=== PATIENT | male | born 1955 | race Two or more races ===

== ENCOUNTER → 2020-02-20 | Outpatient (CLI) | payer OTHER ==
--- NOTE | 2020-02-20 15:49 | Diagnostic Imaging Report ---
Cervical spine, complete, 4 views INDICATION: ^[id number] ^[id number] ^Spondylolysis, cervical region Comparison: None available. Discussion: There is straightening and reversal the normal cervical lordosis. Negative significant compression deformity or displaced fracture deformity. Negative for abnormal prevertebral soft tissue thickening. Visualized portions of the odontoid are unremarkable. C1-C2 articulation is symmetric. Disc-osteophyte complexes are noted at C4-5, C5-6 and C6-7, most severe at C5-6 there is slight retrolisthesis of C5 on C6. Oblique views demonstrate moderate narrowing of the right neural foraminal stenosis at C5-6. Visualized soft tissues are unremarkable. 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 There is probable right neural foraminal stenosis at C5-6. Reversal of the normal cervical lordosis. Consider follow-up MRI if clinically indicated. Signed by: Dimitri Delcid MD on 02/20/2020 3:46 PM
== END ==
LOC: RAD 12:58
PROVIDERS: ATTEND Internal Medicine
DX: M43.02 Spondylolysis, cervical region (principal)
CPT/HCPCS: 72050

== ENCOUNTER → 2020-04-13 | Outpatient (CLI) | payer SELFPAY | LOC: MRI 11:08 | PROVIDERS: ATTEND Internal Medicine | DX: M43.06 Spondylolysis, lumbar region (principal) | CPT/HCPCS: 72141 ==